=== PATIENT | male | born 1965 | race Caucasian/White ===

== ENCOUNTER 2017-09-10 00:41 | Emergency (ER) | payer MEDICAID ==
[~2017-09-10] VITALS: Ht 200.7 cm; Wt 85.7 kg
[~2017-09-10 00:41] MED LIST: Bentyl20 MG PO; CEPH500 PO; CYCL10 PO; DIAZ5 PO; GABA400; HYOS.125 PO; MELA3 PO; MELATONIN10 M2 PO; METH10 PO; METH40 PO; METPRE4DP PO; NAPR550 PO; Omeprazole20 M1 PO; TAMS.4ER PO; TRAZ50 PO; VARE1 PO
== END 2017-09-10 03:01 | disposition home or self-care (01) ==
LOC: ER 00:41
DX: S40.021A Contusion of right upper arm, initial encounter (principal); X58.XXXA Exposure to other specified factors, initial encounter; Z79.899 Other long term (current) drug therapy; F17.210 Nicotine dependence, cigarettes, uncomplicated
CPT/HCPCS: 99281

== ENCOUNTER → 2017-11-20 | Outpatient (CLI) | payer MEDICARE | END | disposition home or self-care (01) | LOC: LAB 15:32 → LAB SHORT 15:32 | DX: Z51.81 Encounter for therapeutic drug level monitoring (principal); Z79.899 Other long term (current) drug therapy ==

== ENCOUNTER 2018-12-20 01:03 | Emergency (ER) | payer MEDICARE ==
[~2018-12-20] VITALS: Ht 200.7 cm; Wt 90.7 kg
[~2018-12-20 01:03] MED LIST changes: +GABA300 PO; +HYDR1TAB94 PO; +TRAZ150T57 PO
== END 2018-12-20 01:52 | disposition home or self-care (01) ==
LOC: ER 01:03
DX: Z48.814 Encounter for surgical aftercare following surgery on the teeth or oral cavity (principal); Z85.09 Personal history of malignant neoplasm of other digestive organs; Z79.899 Other long term (current) drug therapy
CPT/HCPCS: 99282

== ENCOUNTER 2019-02-09 03:49 | Emergency (ER) | payer MEDICARE ==
[~2019-02-09] VITALS: Ht 200.7 cm; Wt 907.2 kg
== END 2019-02-09 04:40 | disposition home or self-care (01) ==
LOC: ER 03:49
DX: S61.210A Laceration without foreign body of right index finger without damage to nail, initial encounter (principal); F17.210 Nicotine dependence, cigarettes, uncomplicated; Z85.09 Personal history of malignant neoplasm of other digestive organs; W26.0XXA Contact with knife, initial encounter
CPT/HCPCS: 12001; 90471; 90714; 99282-25

== ENCOUNTER 2020-04-24 23:22 | Emergency (ER) | payer OTHER ==
[~2020-04-24] VITALS: Ht 200.7 cm; Wt 90.7 kg
[2020-04-24] MEDS ORDERED: CLON.1 PO (23:38)
[2020-04-24] MEDS ORDERED: BUPRENORPHIN-N1 EAC4 SL (23:38)
[2020-04-25 00:02] LABS: BASOPHILS ABSOLUTE AUTO 0.02 K/mm3 (0.00-0.23); BASOPHILS PERCENT AUTO 0 % (0-2); EOSINOPHILS PERCENT AUTO 1 % (0-6); Hematocrit 42.4 % (37.0-53.0); Hemoglobin 13.8 g/dL (13.5-17.5); IMMATURE GRAN ABSOLUTE AUTO 0.01 K/mm3 (0.00-0.10); IMMATURE GRAN PERCENT AUTO 0 % (0-1); LYMPHOCYTES ABSOLUTE AUTO 1.79 K/mm3 (0.84-5.20); LYMPHOCYTES PERCENT AUTO 23 % (21-46); MONOCYTES ABSOLUTE AUTO 0.61 K/mm3 (0.16-1.47); MONOCYTES PERCENT AUTO 8 % (4-13); Mean Corpuscular HGB Conc 32.5 g/dL (31.5-36.5); Mean Corpuscular Volume 92 fL (80-100); Mean Platelet Volume 9.8 fL (9.1-12.4); NEUTROPHILS ABSOLUTE AUTO 5.14 K/mm3 (1.96-9.15); NEUTROPHILS PERCENT AUTO 67 % (41-73); Platelet Count 224 K/mm3 (150-400); RDW Coefficient Variation 13.1 % (11.7-14.2); RDW Standard Deviation 44.4 fL (35.1-46.3); White Blood Cell Count 7.67 K/mm3 (4.00-11.30)
[2020-04-25 00:18] LABS: Alanine Aminotransfer (ALT/SGP 40 U/L (12-78); Albumin, Blood 3.7 g/dL (3.4-5.0); Albumin/Globulin Ratio 1.1 (0.8-1.8); Alk Phos 93 U/L (50-136); Anion Gap 5 mmol/L (6-16); Aspartate Aminotrans (AST/SGOT 17 U/L (12-37); Bilirubin, Total 0.3 mg/dL (0.1-1.0); Blood Urea Nitrogen 19 mg/dL (8-24); Bun/Creatinine Ratio 21.6 (12.0-20.0); CO2, Blood 29 mmol/L (21-32); Calcium, Blood 8.8 mg/dL (8.5-10.1); Chloride, Blood 106 mmol/L (98-108); Creatinine, Blood 0.88 mg/dL (0.60-1.20); Globulin, Blood 3.5 g/dL (2.2-4.0); Glomerular Filtration Rate >60 (60-); Glucose, Blood 100 mg/dL (70-99); Potassium, Blood 3.6 mmol/L (3.5-5.5); Sodium, Blood 140 mmol/L (136-145); Total Protein, Blood 7.2 g/dL (6.4-8.2)
[2020-04-25 01:20] LABS: Troponin I <0.015 ng/mL (0.000-0.040)
[2020-04-27] MEDS ORDERED: Bentyl20 MG PO ×2 (03:42→03:43)
== END 2020-04-25 03:18 | disposition home or self-care (01) ==
LOC: ER 23:22
PROVIDERS: Emergency Medicine
DX: K92.2 Gastrointestinal hemorrhage, unspecified (principal); K52.9 Noninfective gastroenteritis and colitis, unspecified; N28.1 Cyst of kidney, acquired; F17.210 Nicotine dependence, cigarettes, uncomplicated; Z79.899 Other long term (current) drug therapy
CPT/HCPCS: 74177; 80053; 82272; 83605; 83690; 84484; 85025; 93005; 93010; 99284-25; Q9967